=== PATIENT | male | born 1985 | race African-American/Black ===

== ENCOUNTER 2020-07-25 09:40 | Emergency (ER) | payer OTHER, SELFPAY ==
--- NOTE | ~2020-07-25 | XR_ITS ---
XR chest 1V portable DATE: 07/25/2020 11:07 INDICATION: Shortness of breath for 6 days. Nausea, vomiting, diarrhea TECHNIQUE: Portable upright AP chest on 07/25/2020 at 1102 hours COMPARISON: None FINDINGS: Normal heart size. No hilar or mediastinal enlargement. The lungs are moderately hyperinfla maría, clear of infiltrate or consolidation. No pleural effusion or pulmonary vascular congestion or pn eumothorax. IMPRESSION: No active cardiopulmonary disease Reviewed, dictated and finalized at location B.
[2020-07-25 09:59] VITALS: BP 126/74; PULSE 83; PULSE 87; RESP 17; RESP 18; TEMP 36.6; O2SAT 100
[2020-07-25 10:13] VITALS: BP 126/74; PULSE 71; RESP 16; O2SAT 100
[2020-07-25 10:50] VITALS: BP 125/76; PULSE 87; RESP 15; O2SAT 99
--- NOTE | 2020-07-25 11:16 | ED.URI ---
HPI - URI/Sore Throat General Chief Complaint: Upper Respiratory Infection Stated Complaint: cough, sob Time Seen by Provider: 07/25/20 10:03 Source: patient and family Mode of arrival: ambulatory Limitations: no limitations History of Present Illness HPI Narrative: Patient is a 34-year-old male who presents with chief complaint of upper respiratory symptoms for the last 6 days noting fever chills body aches headache diarrhea cough and shortness of breath patient notes possible sick contacts patient denies vomiting patient has been attempting [id number] medications with minimal improvement Related Data Allergies Allergy/AdvReac Type Severity Reaction Status Date / Time No Known Allergies Allergy Unverified 11/05/17 14:31 Review of Systems Review of Systems: All systems reviewed & are unremarkable except as noted in HPI and below PMFSH Social History Social History Gender identity (if verbalized by the patient): Male Exam Narrative: Exam Narrative: GENERAL: Well-appearing, well-nourished, and in no acute distress. HEAD: Normocephalic, atraumatic. EYES: PERRLA and EOMI. ENT: Nares clear, no rhinorrhea or epistaxis. Mucous membranes moist. Oropharynx without tonsillar hypertrophy exudate or other lesions. NECK: Supple. No adenopathy or masses. CHEST: Clear to auscultation. No respiratory distress. No wheezes rales or rhonchi HEART: Regular rate and rhythm. No murmur heard. EXTREMITIES: Normal range of motion. No edema. SKIN: Warm, dry, no rash. NEURO: No focal deficits. Alert and oriented x3. Cranial nerves II through XII grossly intact PSYCH: Normal mood and affect. Course Course Emergency Course: Patient in the room no distress normal vital signs no pneumonia seen on exam patient afebrile nontoxic-appearing felt appropriate for outpatient reevaluation no pneumonia seen on chest radiograph patient swabbed for COVID will follow with primary care for further evaluation also advised to self quarantine until he has received his results and been advised by primary care. Patient agrees with this plan Vital Signs Vital signs: Vital Signs Temperature 97.8 F 07/25/20 09:59 Pulse Rate 87 07/25/20 09:59 Respiratory Rate 17 07/25/20 09:59 Blood Pressure 126/74 07/25/20 09:59 Pulse Oximetry 100 09/29/20 09:59 Temperature 97.8 F 07/25/20 09:59 Pulse Rate 87 07/25/20 10:50 Respiratory Rate 15 07/25/20 10:50 Blood Pressure 125/76 07/25/20 10:50 Pulse Oximetry 99 07/25/20 10:50 MDM - URI/Sore Throat MDM Narrative Medical decision making narrative: Patient in the room in no distress afebrile nontoxic-appearing no distress felt appropriate for outpatient reevaluation provided with follow-up and reasons to return Discharge Plan Discharge Clinical Impression: Upper respiratory infection Patient Disposition: Home, Self-Care Condition: Stable Instructions: Antibiotic Form, COVID-19 (Coronavirus Disease 2019) (ED) Additional Instructions: Follow up with your primary care provider within 1-2 days to receive your COVID-19 results and to set up for reevaluation. Go to ER for shortness of breath, difficulty breathing, chest pain, fever/chills, weakness, nauseau/vomitting, etc. or any other concerns. Stay well-hydrated Take any prescribed medications as directed. Self quarantine until you have received your results and been advised by primary care If you do not have a drug allergy to tylenol or motrin and can tolerate it then take tylenol or motrin as needed for discomfort/pain. Prescriptions: New loratadine [Claritin] 10 mg tablet 10 mg PO DAILY PRN (Reason: allergy symptoms) Qty: 14 RF: 0 fluticasone propionate [Flonase Allergy Relief] 50 mcg/actuation spray,suspension 2 spray NASAL DAILY Qty: 9.9 RF: 0 Follow-up/Referrals: Jc Alegria MD [Physician] - PHYSICIAN,[employer]ING [employer]INEER[employer] TECH [Primary Care Provide
[2020-07-25 11:53] VITALS: BP 125/76; PULSE 72; RESP 18; O2SAT 100
[2020-07-25 23:21] LABS: SARS-CoV-2 RNA PCR Negative
== END 2020-07-25 11:54 | disposition home or self-care (01) ==
PROVIDERS: Emergency Medicine Emergency Medical Services; Emergency Provider Emergency Medicine
DX: J06.9 Acute upper respiratory infection, unspecified (principal); Z20.828 Contact with and (suspected) exposure to other viral communicable diseases
CPT/HCPCS: 71045; 87635; 99283; C9803; U0003

== ENCOUNTER 2021-10-22 02:40 | Emergency (ER) | payer OTHER, SELFPAY ==
[2021-10-22 02:43] VITALS: BP 118/67; PULSE 52; RESP 16; TEMP 36.4; O2SAT 100
--- NOTE | 2021-10-22 03:50 | ED.WOUNDLAC ---
HPI - Wound/Laceration General Chief Complaint: Wound/Laceration Stated Complaint: laceration Time Seen by Provider: 10/22/21 03:09 History of Present Illness HPI narrative: Patient is a 35-year-old male who presents ER with a laceration to his left second digit. It is over the fingertip. Goes into subcutaneous tissue and does not involve the nail. No exposure of tendon. Range of motion preserved in sensation intact. He is opening a pack of [employer] when he cut himself. It occurred yesterday afternoon. Tetanus up-to-date. Related Data Allergies Allergy/AdvReac Type Severity Reaction Status Date / Time No Known Allergies Allergy Unverified 11/05/17 14:31 Review of Systems Musculoskeletal: Musculoskeletal: Denies arthralgias, Denies joint swelling and Denies muscle cramps Integumentary/Breasts: Skin/Breast: Denies erythema and Denies rash Comments: Laceration Neurologic: Denies focal weakness and Denies numbness PMFSH Past Medical History Medical History (Updated 10/22/21 @ 03:53 by Chidi Wray MD) Healthy adult male Surgical History Surgical History (Updated 10/22/21 @ 03:51 by Chidi Wray MD) No history of previous surgery Social History Social History (Updated 10/22/21 @ 03:51 by Chidi Wray MD) Smoking status: Never smoker Gender identity (if verbalized by the patient): Male Exam Narrative: GENERAL: Well-appearing, well-nourished, and in no acute distress. HEAD: Normocephalic, atraumatic. EXTREMITIES: Normal range of motion. No edema. SKIN: Warm, dry, no rash. 1.5 cm laceration to the tip of the second digit of the left hand without involvement of bone or nail or tendon. Sensation intact. NEURO: Alert and oriented x3. PSYCH: Normal mood and affect. Course Course Emergency Course: Patient does not wish to have stitches. Repair performed with Steri-Strips. Discharge home. Vital Signs Vital signs: Vital Signs Temperature 97.6 F 10/22/21 02:43 Pulse Rate 52 L 10/22/21 02:43 Respiratory Rate 16 10/22/21 02:43 Blood Pressure 118/67 10/22/21 02:43 Pulse Oximetry 100 10/22/21 02:43 Temperature 97.6 F 10/22/21 02:43 Pulse Rate 52 L 10/22/21 02:43 Respiratory Rate 16 10/22/21 02:43 Blood Pressure 118/67 10/22/21 02:43 Pulse Oximetry 100 10/22/21 02:43 Procedures Laceration Laceration 1: Date: 10/22/21 Time: 03:45 Site: other (Second digit) Side (If applicable): left Size (cm): 1.5 Description: linear Depth: simple, single layer Local Anesthetic: none Pre-repair: irrigated (Soap and water) ====== Skin Level ====== Skin layer closed with: steri strips ====== Subcutaneous Layer ====== ====== Muscle Layer ====== ====== Tendon Layer ====== Discharge Plan Discharge Clinical Impression: Laceration Patient Disposition: Home, Self-Care Condition: Stable Instructions: Laceration (ED), Steristrips (ED) Additional Instructions: Return the ER if your finger is red and hot and swollen, you have pus draining from your wound, you have additional concerns. If your wound opens back up we will have to heal without sutures or Steri-Strips. Prescriptions: No Action loratadine [Claritin] 10 mg tablet 10 mg PO DAILY PRN (Reason: allergy symptoms) Qty: 14 RF: 0 fluticasone propionate [Flonase Allergy Relief] 50 mcg/actuation spray,suspension 2 spray NASAL DAILY Qty: 9.9 RF: 0 Follow-up/Referrals: Liset Koehler MD [Physician] - 1 Week PHYSICIAN,DIRECTOR OF REHABILITATION AND WELLNESS [Primary Care Provider] -
[2021-10-22 03:58] VITALS: BP 125/79; PULSE 65; RESP 14; O2SAT 99
== END 2021-10-22 04:05 | disposition home or self-care (01) ==
PROVIDERS: Emergency Provider Emergency Medicine
DX: S61.211A Laceration without foreign body of left index finger without damage to nail, initial encounter (principal); W26.9XXA Contact with unspecified sharp object(s), initial encounter
CPT/HCPCS: 99282